=== PATIENT | female | born 1985 | race African-American/Black ===

== ENCOUNTER 2016-10-23 16:00 | Emergency (ER) | payer MEDICARE, MEDICAID ==
[~2016-10-23] VITALS: Ht 167.6 cm; Wt 70.0 kg
[2016-10-23] MEDS ORDERED: MORPHINE SULFATE 4 MG/ML CPJ (NOT FOR IM USE) IV ONE (17:15)
[2016-10-23] MEDS ORDERED: SODIUM CHLORIDE 0.9% 1,000 ML IV ONE (17:15)
[2016-10-23 17:31] LABS: BASOPHILS % 0.5 % (0.0-2.0); EOSINOPHILS % 0.1 % (0.0-5.0); HEMATOCRIT. 23.9 % (36.0-48.0); HEMOGLOBIN. 8.2 g/dL (12.0-16.0); LYMPHOCYTES % 37.2 % (20.0-50.0); MEAN CORPUSCULAR HEMOGLOBIN 35.5 pg (28.0-32.0); MEAN CORPUSCULAR HGB CONC 34.5 g/dL (31.0-37.0); MEAN CORPUSCULAR VOLUME 102.7 fL (81.0-99.0); MEAN PLATELET VOLUME 7.3 fl (7.4-10.4); MONOCYTES % 6.1 % (2.0-8.0); NEUTROPHILS % 56.1 % (40.0-76.0); PLATELET 480 x1000/uL (130-400); RED BLOOD CELL COUNT 2.32 mill/uL (4.2-5.4); RED CELL DISTRIBUTION WIDTH 19.7 % (11.6-14.6); WHITE BLOOD COUNT 12.2 x1000/uL (4.5-11.0)
[2016-10-23 17:32] LABS: DIFFERENTIAL COMMENT 1
[2016-10-23 17:34] LABS: CHLORIDE 105 mEq/L (98-107); INDEX HEMOLYSI 1 (1-3); INDEX ICTERIC 1 (1-4); INDEX LIPEMIC 1 (1-3)
[2016-10-23 17:36] LABS: CALCIUM 8.6 mg/dL (8.5-10.1)
[2016-10-23 17:40] LABS: ALANINE AMINOTRANSFERASE 27 IU/L (13-61); ANION GAP 11; CARBON DIOXIDE 26 mEq/L (21-32); UREA NITROGEN BLOOD 8 mg/dL (7-21); eGFR > 60 mL/min (>60)
[2016-10-23 17:56] VITALS: BP 106/55
[2016-10-23] MEDS ORDERED: DIPHENHYDRAMINE 50MG/ML VIAL IV ONE (18:00)
== END 2016-10-23 19:14 | disposition home or self-care (01) ==
LOC: ER 16:01
DX: D57.1 Sickle-cell disease without crisis (principal)
CPT/HCPCS: 36415; 80053; 81025; 85025; 85044; 96361; 96374; 96375; 99285; J1200; J2270; J7030

== ENCOUNTER 2021-06-25 08:57 | Emergency (ER) | payer BC, MEDICAID, MEDICARE ==
[~2021-06-25] VITALS: Ht 162.6 cm; Wt 62.0 kg
[2021-06-25] MEDS ORDERED: SODIUM BICARBONATE 8.4% 1 MEQ/ML 50ML SYR IV ONE ×2 (09:09→19:31)
[2021-06-25] MEDS ORDERED: EPINEPHRINE 0.1MG/ML (1:10,000) 10ML SYR ONE (09:09)
[2021-06-25] MEDS ORDERED: DEXTROSE 50% WATER 50ML SYRINGE IV ONE ×2 (09:09→19:29)
[2021-06-25] MEDS ORDERED: ONDANSETRON HCL 4MG/2ML INJ IV STA (09:51)
[2021-06-25] MEDS ORDERED: HYDROMORPHONE HCL/PF 2MG/ML CPJ IV ONE ×2 (10:00→12:15)
[2021-06-25] MEDS ORDERED: DIPHENHYDRAMINE 50MG/ML VIAL IV ONE (10:00)
[2021-06-25 12:12] LABS: HEMATOCRIT. 31.4 % (36.0-48.0); HEMOGLOBIN. 10.8 g/dL (12.0-16.0); MEAN CORPUSCULAR HEMOGLOBIN 37.3 pg (28.0-32.0); MEAN CORPUSCULAR VOLUME 109.1 fL (81.0-99.0); MEAN PLATELET VOLUME 7.6 fl (7.4-10.4); PLATELET 289 x1000/uL (130-400); RED BLOOD CELL COUNT 2.88 mill/uL (4.2-5.4)
[2021-06-25 13:04] LABS: NUCLEATED RED BLOOD CELLS 25 /100 WBC
[2021-06-25 13:11] LABS: PLATELET ESTIMATE NORMAL
[2021-06-25 13:17] LABS: CHLORIDE 85 mEq/L (98-107)
[2021-06-25] MEDS ORDERED: ONDANSETRON HCL 4MG/2ML INJ IV PRN (14:00)
[2021-06-25] MEDS ORDERED: DEXT 5%/0.9% NACL 1,000 ML IV SCH (14:00)
[2021-06-25] MEDS ORDERED: HYDROMORPHONE HCL/PF 2MG/ML CPJ IV PRN (14:00)
[2021-06-25] MEDS ORDERED: FAMOTIDINE 20MG/2ML VIAL IV SCH (14:00)
[2021-06-25] MEDS ORDERED: NALOXONE HCL 0.4MG/ML VIAL IV PRN (14:15)
[2021-06-25 15:21] LABS: HCG SCREEN NEGATIVE
[2021-06-25 18:00] VITALS: BP 115/86
== END 2021-06-26 02:57 ==
LOC: ER 08:57 → SUPCPDRO 13:59 → CANBEDREQ 23:47 → ER 06-26 02:57
DX: I46.9 Cardiac arrest, cause unspecified (principal); D57.01 Hb-SS disease with acute chest syndrome; C49.9 Malignant neoplasm of connective and soft tissue, unspecified; C78.02 Secondary malignant neoplasm of left lung; C78.01 Secondary malignant neoplasm of right lung; E87.1 Hypo-osmolality and hyponatremia; R73.9 Hyperglycemia, unspecified; D68.59 Other primary thrombophilia; Z20.822 Contact with and (suspected) exposure to COVID-19
CPT/HCPCS: 36415; 36556; 71045; 74176; 80053; 82962; 83690; 83880; 84484; 84703; 85025; 85044; 85379; 87040; 87804; 93005; 96374; 96375; 96376; 99285; C9803; J1170; J1200; J2405; J3490; U0003; U0005